=== PATIENT | male | born 1950 | race Caucasian/White ===

== ENCOUNTER 2021-12-25 18:29 | Inpatient (IN) | payer MEDICARE ==
[~2021-12-25] VITALS: Ht 182.9 cm; Wt 81.0 kg
[2021-12-25] MEDS ORDERED: VANCOMYCIN 1GM/WATER(PEG/NADA) 200 ML IV ONE (19:00)
[2021-12-25 19:24] LABS: HEMATOCRIT 30.7 % (41-53); HEMOGLOBIN 9.7 g/dL (13.5-17.5); MEAN CORPUSCULAR HEMOGLOBIN 30.5 pg (26.0-34.0); MEAN CORPUSCULAR HGB CONC 31.7 G/dL (31.0-37.0); MEAN CORPUSCULAR VOLUME 96 fL (80-100); PLATELET COUNT (AUTO) 215 K/uL (150-450); RED BLOOD CELL COUNT(AUTO) 3.19 MIL/uL (4.50-5.90); RED CELL DISTRIBUTION WIDTH 17.1 % (11.5-14.5)
[2021-12-25 19:28] LABS: CALCIUM, TOTAL 8.7 mg/dL (8.8-10.5); CREATININE 1.45 mg/dL (0.60-1.30); POTASSIUM 5.1 mmol/L (3.5-5.1)
[2021-12-25 19:34] LABS: ALBUMIN 3.4 g/dL (3.4-5.0); BILIRUBIN,TOTAL 0.2 mg/dL (0.1-1.0); TOTAL PROTEIN, SERUM 6.1 g/dL (6.4-8.2)
[2021-12-25] MEDS ORDERED: ONDANSETRON HCL 4 MG/2 ML VIAL IVP PRN ×2 (20:00→20:45)
[2021-12-25] MEDS ORDERED: ACETAMINOPHEN 325 MG TABLET PO PRN ×2 (20:00→20:45)
[2021-12-25 20:23] LABS: COVID AG,FIA SOURCE NASOPHARYNGEAL
[2021-12-25 20:40] LABS: BAND NEUTROPHILS % (MANUAL) 0 % (0-5); LYMPHOCYTES % (MANUAL) 91 % (22-44); MONOCYTES % (MANUAL) 2 % (2-9); SEGMENTED NEUTROPHILS % 7 % (40-70)
[2021-12-25 21:25] VITALS: BP 162/100
[2021-12-25] MEDS ORDERED: SODIUM CHLORIDE 0.9% 500 ML IV ONE (21:26)
[2021-12-25] MEDS: MORPHINE SULFATE 2 MG/ML SYRINGE IVP PRN (23:23)
[2021-12-25] MEDS: HEPARIN SODIUM,PORCINE 5,000 UNITS/ML VIAL SQ SCH (23:23)
[2021-12-26] MEDS: CefTRIAXone 1 GM/DEXTROSE 50 ML IV SCH ×2 (00:04→23:20)
[2021-12-26 04:03] VITALS: BP 128/54
[2021-12-26] MEDS ORDERED: DEXTROSE 50%-WATER 25 GM/50 ML SYRINGE IVP PRN (05:30)
[2021-12-26] MEDS: SODIUM CHLORIDE 0.9% 1,000 ML IV SCH ×2 (05:32→19:42)
[2021-12-26 05:56] LABS: GLUCOMETER DEV NAME(LOC) 6N.2; GLUCOSE,POINT OF CARE 113 MG/DL (70-110)
[2021-12-26 06:23] LABS: CALCIUM, TOTAL 9.2 mg/dL (8.8-10.5); CREATININE 1.31 mg/dL (0.60-1.30); POTASSIUM 5.1 mmol/L (3.5-5.1)
[2021-12-26 06:39] LABS: HEMOGLOBIN 10.4 g/dL (13.5-17.5); RETICULOCYTE % (AUTO) 0.8 % (0.5-2.3)
[2021-12-26 06:58] LABS: HEMATOCRIT 33.3 % (41-53); MEAN CORPUSCULAR HEMOGLOBIN 30.2 pg (26.0-34.0); MEAN CORPUSCULAR HGB CONC 31.3 G/dL (31.0-37.0); MEAN CORPUSCULAR VOLUME 97 fL (80-100); PLATELET COUNT (AUTO) 212 K/uL (150-450); RED BLOOD CELL COUNT(AUTO) 3.45 MIL/uL (4.50-5.90); RED CELL DISTRIBUTION WIDTH 17.4 % (11.5-14.5)
[2021-12-26 07:06] LABS: BAND NEUTROPHILS % (MANUAL) 0 % (0-5)
[2021-12-26 07:30] LABS: % IRON SATURATION 15.3 % (30-44)
[2021-12-26 07:36] LABS: LYMPHOCYTES % (MANUAL) 88 % (22-44); MONOCYTES % (MANUAL) 2 % (2-9); REACTIVE LYMPHOCYTES 5 % (0-0); SEGMENTED NEUTROPHILS % 5 % (40-70)
[2021-12-26 07:57] VITALS: BP 135/92
[2021-12-26] MEDS: HEPARIN SODIUM,PORCINE 5,000 UNITS/ML VIAL SQ SCH ×3 (08:00→23:21)
[2021-12-26] MEDS: VANCOMYCIN HCL 750 MG in DEXTROSE 5%-WATER 250 ML IV SCH ×2 (08:57→19:42)
[2021-12-26 12:07] LABS: GLUCOMETER DEV NAME(LOC) 6N.1; GLUCOSE,POINT OF CARE 132 MG/DL (70-110)
[2021-12-26] MEDS ORDERED: MORPHINE SULFATE 2 MG/ML SYRINGE IVP ONE (18:00)
[2021-12-26 18:46] LABS: GLUCOMETER DEV NAME(LOC) 6N.1; GLUCOSE,POINT OF CARE 112 MG/DL (70-110)
[2021-12-26] MEDS: MORPHINE SULFATE 2 MG/ML SYRINGE IVP PRN ×2 (19:43→23:21)
[2021-12-26 19:54] VITALS: BP 127/58
[2021-12-26] MEDS: INSULIN LISPRO 100 UNITS/ML SQ PRN (20:54)
[2021-12-26 22:36] LABS: GLUCOMETER DEV NAME(LOC) 6N.2; GLUCOSE,POINT OF CARE 160 MG/DL (70-110)
[2021-12-26] MEDS: MELATONIN 5 MG TABLET PO PRN (23:20)
[2021-12-27 04:10] VITALS: BP 109/63
[2021-12-27 06:52] LABS: GLUCOMETER DEV NAME(LOC) 6N.2; GLUCOSE,POINT OF CARE 106 MG/DL (70-110)
[2021-12-27 07:42] VITALS: BP 124/56
[2021-12-27 07:59] VITALS: BP 118/52
[2021-12-27] MEDS: VANCOMYCIN HCL 750 MG in DEXTROSE 5%-WATER 250 ML IV SCH ×2 (08:37→20:25)
[2021-12-27] MEDS: NICOTINE 14 MG/24 HOUR PATCH TD SCH (08:38)
[2021-12-27] MEDS: HEPARIN SODIUM,PORCINE 5,000 UNITS/ML VIAL SQ SCH ×3 (08:38→23:10)
[2021-12-27] MEDS: MORPHINE SULFATE 2 MG/ML SYRINGE IVP PRN ×3 (08:40→20:28)
[2021-12-27] MEDS: SODIUM CHLORIDE 0.9% 1,000 ML IV SCH (08:54)
[2021-12-27 10:40] LABS: HEMATOCRIT 30.8 % (41-53); HEMOGLOBIN 9.8 g/dL (13.5-17.5); MEAN CORPUSCULAR HEMOGLOBIN 30.4 pg (26.0-34.0); MEAN CORPUSCULAR HGB CONC 31.9 G/dL (31.0-37.0); MEAN CORPUSCULAR VOLUME 96 fL (80-100); PLATELET COUNT (AUTO) 189 K/uL (150-450); RED BLOOD CELL COUNT(AUTO) 3.22 MIL/uL (4.50-5.90); RED CELL DISTRIBUTION WIDTH 17.2 % (11.5-14.5)
[2021-12-27 10:55] LABS: BAND NEUTROPHILS % (MANUAL) 0 % (0-5)
[2021-12-27 11:01] LABS: ALANINE AMINOTRANSFERASE 13 U/L (12-78); ALKALINE PHOSPHATASE 113 U/L (46-116); ANION GAP 9 mmol/L (8-16); ASPARTATE AMINOTRANSFERASE 17 U/L (15-37); BILIRUBIN,TOTAL 0.4 mg/dL (0.1-1.0); CALCIUM, TOTAL 8.4 mg/dL (8.8-10.5); CARBON DIOXIDE 24 mmol/L (22-29); CHLORIDE 101 mmol/L (98-107); CREATININE 1.15 mg/dL (0.60-1.30); GLUCOSE,RANDOM 202 mg/dL (70-110); LYMPHOCYTES % (MANUAL) 84 % (22-44); MONOCYTES % (MANUAL) 4 % (2-9); POTASSIUM 4.8 mmol/L (3.5-5.1); REACTIVE LYMPHOCYTES 3 % (0-0); SEGMENTED NEUTROPHILS % 9 % (40-70); SODIUM SERUM 134 mmol/L (136-145); TOTAL PROTEIN, SERUM 5.8 g/dL (6.4-8.2); UREA NITROGEN, BLOOD 28 mg/dL (7-18)
[2021-12-27 11:04] LABS: GLOMERULAR FILTR. RATE CALC > 60 mL/min (>60)
[2021-12-27] MEDS: INSULIN LISPRO 100 UNITS/ML SQ PRN ×2 (12:03→20:27)
[2021-12-27 12:57] LABS: GLUCOMETER DEV NAME(LOC) 6N.2; GLUCOSE,POINT OF CARE 167 MG/DL (70-110)
[2021-12-27 15:46] VITALS: BP 139/58
[2021-12-27 19:10] VITALS: BP 141/54
[2021-12-27 19:26] LABS: GLUCOMETER DEV NAME(LOC) 6N.1; GLUCOSE,POINT OF CARE 102 MG/DL (70-110)
[2021-12-27 21:12] LABS: GLUCOMETER DEV NAME(LOC) 6N.2; GLUCOSE,POINT OF CARE 143 MG/DL (70-110)
[2021-12-27] MEDS: MELATONIN 5 MG TABLET PO PRN (21:44)
[2021-12-27] MEDS: CefTRIAXone 1 GM/DEXTROSE 50 ML IV SCH (23:08)
[2021-12-28] MEDS: MORPHINE SULFATE 2 MG/ML SYRINGE IVP PRN ×6 (00:42→22:29)
[2021-12-28 03:15] VITALS: BP 137/58
[2021-12-28 07:32] LABS: HEMATOCRIT 30.8 % (41-53); MEAN CORPUSCULAR HGB CONC 32.6 G/dL (31.0-37.0); MEAN CORPUSCULAR VOLUME 95 fL (80-100); PLATELET COUNT (AUTO) 189 K/uL (150-450); RED BLOOD CELL COUNT(AUTO) 3.24 MIL/uL (4.50-5.90); RED CELL DISTRIBUTION WIDTH 16.9 % (11.5-14.5)
[2021-12-28 07:42] VITALS: BP 116/63
[2021-12-28 08:01] LABS: ALANINE AMINOTRANSFERASE 16 U/L (12-78); ALBUMIN 3.1 g/dL (3.4-5.0); ALKALINE PHOSPHATASE 115 U/L (46-116); ANION GAP 8 mmol/L (8-16); ASPARTATE AMINOTRANSFERASE 17 U/L (15-37); BILIRUBIN,TOTAL 0.4 mg/dL (0.1-1.0); CALCIUM, TOTAL 8.6 mg/dL (8.8-10.5); CARBON DIOXIDE 25 mmol/L (22-29); CHLORIDE 103 mmol/L (98-107); CREATININE 1.08 mg/dL (0.60-1.30); GLUCOSE,RANDOM 101 mg/dL (70-110); POTASSIUM 4.7 mmol/L (3.5-5.1); SODIUM SERUM 136 mmol/L (136-145); TOTAL PROTEIN, SERUM 5.9 g/dL (6.4-8.2); UREA NITROGEN, BLOOD 23 mg/dL (7-18); VANCOMYCIN,RANDOM 16.9 mcg/mL (25.0-50.0)
[2021-12-28 08:02] LABS: GLOMERULAR FILTR. RATE CALC > 60 mL/min (>60)
[2021-12-28] MEDS: NICOTINE 14 MG/24 HOUR PATCH TD SCH (08:14)
[2021-12-28] MEDS: VANCOMYCIN HCL 750 MG in DEXTROSE 5%-WATER 250 ML IV SCH (08:14)
[2021-12-28] MEDS: HEPARIN SODIUM,PORCINE 5,000 UNITS/ML VIAL SQ SCH ×3 (08:14→23:12)
[2021-12-28 08:21] LABS: GLUCOMETER DEV NAME(LOC) 6N.1; GLUCOSE,POINT OF CARE 106 MG/DL (70-110)
[2021-12-28] MEDS: SODIUM CHLORIDE 0.9% 1,000 ML IV SCH (09:23)
[2021-12-28 09:48] LABS: BAND NEUTROPHILS % (MANUAL) 0 % (0-5)
[2021-12-28 09:52] LABS: LYMPHOCYTES % (MANUAL) 82 % (22-44); MONOCYTES % (MANUAL) 3 % (2-9); REACTIVE LYMPHOCYTES 8 % (0-0); SEGMENTED NEUTROPHILS % 7 % (40-70)
[2021-12-28 13:02] LABS: GLUCOMETER DEV NAME(LOC) 6N.2; GLUCOSE,POINT OF CARE 115 MG/DL (70-110)
[2021-12-28 15:41] VITALS: BP 130/63
[2021-12-28 18:06] LABS: GLUCOMETER DEV NAME(LOC) 6N.2; GLUCOSE,POINT OF CARE 110 MG/DL (70-110)
[2021-12-28 19:33] VITALS: BP 141/69
[2021-12-28 22:21] LABS: GLUCOMETER DEV NAME(LOC) 6N.1; GLUCOSE,POINT OF CARE 102 MG/DL (70-110)
[2021-12-29 04:50] VITALS: BP 147/63
[2021-12-29 06:00] VITALS: BP 129/55
[2021-12-29 07:06] LABS: GLUCOMETER DEV NAME(LOC) 6N.2; GLUCOSE,POINT OF CARE 94 MG/DL (70-110)
[2021-12-29 07:22] LABS: HEMATOCRIT 30.4 % (41-53); HEMOGLOBIN 9.9 g/dL (13.5-17.5); MEAN CORPUSCULAR HEMOGLOBIN 31.1 pg (26.0-34.0); MEAN CORPUSCULAR HGB CONC 32.7 G/dL (31.0-37.0); MEAN CORPUSCULAR VOLUME 95 fL (80-100); PLATELET COUNT (AUTO) 185 K/uL (150-450); RED BLOOD CELL COUNT(AUTO) 3.19 MIL/uL (4.50-5.90)
[2021-12-29 07:26] LABS: BAND NEUTROPHILS % (MANUAL) 0 % (0-5)
[2021-12-29 07:37] LABS: ALANINE AMINOTRANSFERASE 17 U/L (12-78); ALKALINE PHOSPHATASE 115 U/L (46-116); ANION GAP 6 mmol/L (8-16); ASPARTATE AMINOTRANSFERASE 21 U/L (15-37); BILIRUBIN,TOTAL 0.4 mg/dL (0.1-1.0); CALCIUM, TOTAL 8.8 mg/dL (8.8-10.5); CARBON DIOXIDE 23 mmol/L (22-29); CHLORIDE 104 mmol/L (98-107); CREATININE 0.94 mg/dL (0.60-1.30); GLUCOSE,RANDOM 96 mg/dL (70-110); POTASSIUM 4.7 mmol/L (3.5-5.1); SODIUM SERUM 133 mmol/L (136-145); TOTAL PROTEIN, SERUM 5.7 g/dL (6.4-8.2); UREA NITROGEN, BLOOD 21 mg/dL (7-18)
[2021-12-29 07:39] LABS: GLOMERULAR FILTR. RATE CALC > 60 mL/min (>60)
[2021-12-29 08:00] VITALS: BP 128/80
[2021-12-29 08:06] LABS: LYMPHOCYTES % (MANUAL) 87 % (22-44); MONOCYTES % (MANUAL) 2 % (2-9); REACTIVE LYMPHOCYTES 5 % (0-0); SEGMENTED NEUTROPHILS % 6 % (40-70)
[2021-12-29] MEDS: HEPARIN SODIUM,PORCINE 5,000 UNITS/ML VIAL SQ SCH ×2 (08:31→16:26)
[2021-12-29] MEDS: NICOTINE 14 MG/24 HOUR PATCH TD SCH (08:31)
[2021-12-29 14:01] LABS: GLUCOMETER DEV NAME(LOC) 6N.2; GLUCOSE,POINT OF CARE 89 MG/DL (70-110)
[2021-12-29] MEDS: SODIUM CHLORIDE 0.9% 1,000 ML IV SCH ×2 (15:05)
[2021-12-29 16:27] VITALS: BP 140/63
[2021-12-29 18:06] LABS: GLUCOMETER DEV NAME(LOC) 6N.1; GLUCOSE,POINT OF CARE 117 MG/DL (70-110)
[2021-12-29 20:00] VITALS: BP 154/79
[2021-12-29] MEDS: DOCUSATE SODIUM 100 MG CAPSULE PO SCH ×2 (20:36→20:42)
[2021-12-29 21:36] LABS: GLUCOMETER DEV NAME(LOC) 6N.2; GLUCOSE,POINT OF CARE 119 MG/DL (70-110)
[2021-12-30] MEDS: HEPARIN SODIUM,PORCINE 5,000 UNITS/ML VIAL SQ SCH ×4 (00:05→23:43)
[2021-12-30] MEDS: MORPHINE SULFATE 2 MG/ML SYRINGE IVP PRN ×5 (00:53→23:40)
[2021-12-30] MEDS: SODIUM CHLORIDE 0.9% 1,000 ML IV SCH ×2 (02:30→13:12)
[2021-12-30 04:25] VITALS: BP 141/70
[2021-12-30 07:49] VITALS: BP 144/71
[2021-12-30 08:56] LABS: ANION GAP 13 mmol/L (8-16); CALCIUM, TOTAL 9.3 mg/dL (8.8-10.5); CARBON DIOXIDE 20 mmol/L (22-29); CHLORIDE 106 mmol/L (98-107); CREATININE 0.89 mg/dL (0.60-1.30); GLUCOSE,RANDOM 105 mg/dL (70-110); POTASSIUM 4.7 mmol/L (3.5-5.1); SODIUM SERUM 139 mmol/L (136-145); UREA NITROGEN, BLOOD 18 mg/dL (7-18)
[2021-12-30 08:57] LABS: GLOMERULAR FILTR. RATE CALC > 60 mL/min (>60)
[2021-12-30] MEDS: DOCUSATE SODIUM 100 MG CAPSULE PO SCH ×2 (08:57→21:00)
[2021-12-30] MEDS: MULTIVITAMINS WITH MINERALS, THERAPEUTIC TABLET PO SCH (08:57)
[2021-12-30] MEDS: NICOTINE 14 MG/24 HOUR PATCH TD SCH (08:58)
[2021-12-30] MEDS ORDERED: *CLINICAL-MEROPENEM DOSING CLINICAL ONE (15:30)
[2021-12-30 16:05] VITALS: BP 166/72
[2021-12-30] MEDS: MEROPENEM 1 GM in SODIUM CHLORIDE 0.9% 100 ML IV SCH ×2 (16:29→23:33)
[2021-12-30 17:31] LABS: GLUCOMETER DEV NAME(LOC) 6N.2; GLUCOSE,POINT OF CARE 95 MG/DL (70-110)
[2021-12-30 20:10] VITALS: BP 147/67
[2021-12-30 22:46] LABS: GLUCOMETER DEV NAME(LOC) 6N.2; GLUCOSE,POINT OF CARE 106 MG/DL (70-110)
[2021-12-30 22:46] LABS: GLUCOMETER DEV NAME(LOC) 6N.1; GLUCOSE,POINT OF CARE 89 MG/DL (70-110)
[2021-12-31] MEDS: MORPHINE SULFATE 2 MG/ML SYRINGE IVP PRN ×3 (03:10→21:06)
[2021-12-31 03:11] VITALS: BP 162/89
[2021-12-31 06:47] LABS: GLUCOMETER DEV NAME(LOC) 6N.1; GLUCOSE,POINT OF CARE 86 MG/DL (70-110)
[2021-12-31 06:57] LABS: ANION GAP 8 mmol/L (8-16); CALCIUM, TOTAL 9.5 mg/dL (8.8-10.5); CARBON DIOXIDE 25 mmol/L (22-29); CHLORIDE 107 mmol/L (98-107); CREATININE 0.87 mg/dL (0.60-1.30); GLUCOSE,RANDOM 93 mg/dL (70-110); POTASSIUM 4.6 mmol/L (3.5-5.1); SODIUM SERUM 140 mmol/L (136-145); UREA NITROGEN, BLOOD 15 mg/dL (7-18)
[2021-12-31 06:59] LABS: GLOMERULAR FILTR. RATE CALC > 60 mL/min (>60)
[2021-12-31 07:49] VITALS: BP 181/78
[2021-12-31] MEDS: SODIUM CHLORIDE 0.9% 1,000 ML IV SCH ×2 (08:11→13:57)
[2021-12-31] MEDS: MEROPENEM 1 GM in SODIUM CHLORIDE 0.9% 100 ML IV SCH (08:11)
[2021-12-31] MEDS: HEPARIN SODIUM,PORCINE 5,000 UNITS/ML VIAL SQ SCH ×3 (08:12→23:36)
[2021-12-31] MEDS: MULTIVITAMINS WITH MINERALS, THERAPEUTIC TABLET PO SCH (08:12)
[2021-12-31] MEDS: DOCUSATE SODIUM 100 MG CAPSULE PO SCH ×3 (08:12→21:06)
[2021-12-31] MEDS: NICOTINE 14 MG/24 HOUR PATCH TD SCH (08:13)
[2021-12-31 08:55] VITALS: BP 148/68
[2021-12-31] MEDS ORDERED: MORPHINE SULFATE 2 MG/ML SYRINGE IVP ONE (11:45)
[2021-12-31 14:00] VITALS: BP 156/69
[2021-12-31 15:26] LABS: GLUCOMETER DEV NAME(LOC) 6N.1; GLUCOSE,POINT OF CARE 113 MG/DL (70-110)
[2021-12-31] MEDS ORDERED: MEROPENEM 2 GM in SODIUM CHLORIDE 0.9% 100 ML IV SCH (16:00)
[2021-12-31] MEDS: MEROPENEM 2 GM in SODIUM CHLORIDE 0.9% 100 ML IV SCH (16:53)
[2021-12-31 20:15] VITALS: BP 155/59
[2021-12-31 21:31] LABS: GLUCOMETER DEV NAME(LOC) 6N.2; GLUCOSE,POINT OF CARE 114 MG/DL (70-110)
[2022-01-01] VITALS (9 sets, daily range): BP systolic 143–194; BP diastolic 60–89
[2022-01-01] MEDS: SODIUM CHLORIDE 0.9% 1,000 ML IV SCH ×2 (01:29→21:04)
[2022-01-01] MEDS: MEROPENEM 2 GM in SODIUM CHLORIDE 0.9% 100 ML IV SCH ×2 (03:47→16:30)
[2022-01-01] MEDS: MORPHINE SULFATE 2 MG/ML SYRINGE IVP PRN ×3 (03:49→18:50)
[2022-01-01 06:36] LABS: GLUCOMETER DEV NAME(LOC) 6N.2; GLUCOSE,POINT OF CARE 103 MG/DL (70-110)
[2022-01-01 06:39] LABS: HEMATOCRIT 29.4 % (41-53); HEMOGLOBIN 9.6 g/dL (13.5-17.5); MEAN CORPUSCULAR HGB CONC 32.8 G/dL (31.0-37.0); MEAN CORPUSCULAR VOLUME 95 fL (80-100); PLATELET COUNT (AUTO) 166 K/uL (150-450); RED CELL DISTRIBUTION WIDTH 16.9 % (11.5-14.5)
[2022-01-01 07:01] LABS: ALANINE AMINOTRANSFERASE 17 U/L (12-78); ALBUMIN 2.9 g/dL (3.4-5.0); ALKALINE PHOSPHATASE 126 U/L (46-116); ANION GAP 7 mmol/L (8-16); ASPARTATE AMINOTRANSFERASE 19 U/L (15-37); BILIRUBIN,TOTAL 0.3 mg/dL (0.1-1.0); CALCIUM, TOTAL 9.1 mg/dL (8.8-10.5); CARBON DIOXIDE 24 mmol/L (22-29); CHLORIDE 107 mmol/L (98-107); CREATININE 0.97 mg/dL (0.60-1.30); GLUCOSE,RANDOM 103 mg/dL (70-110); SODIUM SERUM 138 mmol/L (136-145); TOTAL PROTEIN, SERUM 5.6 g/dL (6.4-8.2); UREA NITROGEN, BLOOD 14 mg/dL (7-18)
[2022-01-01 07:08] LABS: GLOMERULAR FILTR. RATE CALC > 60 mL/min (>60)
[2022-01-01 07:18] LABS: C-REACTIVE PROTEIN QUANT 0.87 mg/dL (0.00-0.30)
[2022-01-01 08:41] LABS: BAND NEUTROPHILS % (MANUAL) 0 % (0-5)
[2022-01-01 08:57] LABS: LYMPHOCYTES % (MANUAL) 96 % (22-44); SEGMENTED NEUTROPHILS % 4 % (40-70)
[2022-01-01] MEDS: MULTIVITAMINS WITH MINERALS, THERAPEUTIC TABLET PO SCH (09:01)
[2022-01-01] MEDS: HEPARIN SODIUM,PORCINE 5,000 UNITS/ML VIAL SQ SCH ×2 (09:01→16:30)
[2022-01-01] MEDS: DOCUSATE SODIUM 100 MG CAPSULE PO SCH ×2 (09:01→21:00)
[2022-01-01] MEDS: NICOTINE 14 MG/24 HOUR PATCH TD SCH (09:02)
[2022-01-01] MEDS ORDERED: PERCT PO (09:56)
[2022-01-01 12:06] LABS: GLUCOMETER DEV NAME(LOC) 6N.2; GLUCOSE,POINT OF CARE 91 MG/DL (70-110)
[2022-01-01] MEDS ORDERED: MERO1VIA22 IV (13:33)
[2022-01-01 18:12] LABS: GLUCOMETER DEV NAME(LOC) 6N.2; GLUCOSE,POINT OF CARE 104 MG/DL (70-110)
[2022-01-01] MEDS ORDERED: CloNIDine HCL 0.1 MG TABLET PO PRN (20:45)
[2022-01-01] MEDS: AmLODIPine BESYLATE 5 MG TABLET PO SCH (20:54)
[2022-01-02] MEDS: HEPARIN SODIUM,PORCINE 5,000 UNITS/ML VIAL SQ SCH ×2 (00:14→08:49)
[2022-01-02 01:55] LABS: GLUCOMETER DEV NAME(LOC) 6N.2; GLUCOSE,POINT OF CARE 112 MG/DL (70-110)
[2022-01-02] MEDS: MEROPENEM 2 GM in SODIUM CHLORIDE 0.9% 100 ML IV SCH (04:17)
[2022-01-02 05:02] VITALS: BP 142/59
[2022-01-02 07:06] LABS: GLUCOMETER DEV NAME(LOC) 6N.1; GLUCOSE,POINT OF CARE 96 MG/DL (70-110)
[2022-01-02 08:12] VITALS: BP 124/56
[2022-01-02] MEDS: DOCUSATE SODIUM 100 MG CAPSULE PO SCH (08:49)
[2022-01-02] MEDS: NICOTINE 14 MG/24 HOUR PATCH TD SCH (08:49)
[2022-01-02] MEDS: MULTIVITAMINS WITH MINERALS, THERAPEUTIC TABLET PO SCH (08:49)
[2022-01-02] MEDS: AmLODIPine BESYLATE 5 MG TABLET PO SCH (08:49)
[2022-01-02] MEDS: SODIUM CHLORIDE 0.9% 1,000 ML IV SCH (08:51)
== END 2022-01-02 10:30 | disposition home health service (06) | DRG 603 ==
LOC: EMS 18:29 → 6S 20:29 → 6N 21:23 → 6S 12-27
PROVIDERS: ADMIT Internal Medicine; ATTEND Internal Medicine
PROC: 05HY33Z Insertion of Infusion Device into Upper Vein, Percutaneous Approach (ICD-10-PCS; principal; 2021-12-30)
DX: L03.116 Cellulitis of left lower limb (principal); C95.90 Leukemia, unspecified not having achieved remission; D84.81 Immunodeficiency due to conditions classified elsewhere; Z53.20 Procedure and treatment not carried out because of patient's decision for unspecified reasons; D64.9 Anemia, unspecified; F17.210 Nicotine dependence, cigarettes, uncomplicated; E11.9 Type 2 diabetes mellitus without complications; Z20.822 Contact with and (suspected) exposure to COVID-19; Z66 Do not resuscitate; I10 Essential (primary) hypertension; Z51.5 Encounter for palliative care; Z78.9 Other specified health status
CPT/HCPCS: 36245; 36569; 73718; 73721; 76937; 80048; 80053; 80202; 82962; 83540; 83550; 84145; 85025; 85045; 86140; 87040; 87070; 87081; 97162; 97530; 99285; J0696; J1644; J2185; J2270; J2405; J3370; J7030; J7040; J7050; J7060; Q9967